=== PATIENT | male | born 1975 | race Caucasian/White ===

== ENCOUNTER → 2016-02-26 | Outpatient (REF) | payer BC | END | disposition home or self-care (01) | LOC: M LAB REF 12:26 | PROVIDERS: ATTEND Internal Medicine | DX: R79.89 Other specified abnormal findings of blood chemistry (principal) ==

== ENCOUNTER → 2016-08-29 | Outpatient (REF) | payer BC ==
[~2016-08-29] MED LIST: LIPI10TA PO; OXYC1TAB23 PO; PRAV20TA2 PO
== END ==
LOC: M LAB REF 18:02
PROVIDERS: ATTEND Otolaryngology
DX: D23.39 Other benign neoplasm of skin of other parts of face (principal)

== ENCOUNTER → 2016-09-07 | Outpatient (CLI) | payer BC ==
[~2016-09-07] MED LIST changes: +ISOVUE-370 76% 100ML VIAL (Q9967) As Ordered ONE
--- NOTE | 2016-09-08 08:45 | REP ---
CT NECK WITH CONTRAST: HISTORY: Swelling. CONTRAST: Isovue 370, 75 mL. A BB was placed on the soft tissue overlying the left temporalis muscle. A 2.2 cm soft tissue mass is present in the subcutaneous tissue lateral to the body of the left mandible. The naso-, viviana-, and hypopharynx, larynx, and subglottic trachea are otherwise normal in appearance. The salivary and thyroid glands are normal in size and density. Small lymph nodes less than 1 cm in size are present in the internal jugular chains, posterior triangles, submandibular, submental and supraclavicular areas. The lung apices are clear. Mucosal thickening and a retention cyst are present in the left maxillary sinus. A 3 mm metallic density is present in the left globe. There is mild dilatation of the visualized third and lateral ventricles. IMPRESSION: 1. There is a 2.2 cm soft tissue mass in the subcutaneous tissue lateral to the body of the left mandible. This most likely represents a lymph node. 2. There is mild dilatation of the visualized third and lateral ventricles. This may represent encephalomalacia or hydrocephalus. Head CT may be helpful for further evaluation. Signed by Chidi Vasquez MD 09/08/2016 08:53 A
== END ==
LOC: M RAD 16:53
PROVIDERS: ATTEND Otolaryngology
DX: R22.0 Localized swelling, mass and lump, head (principal); G93.89 Other specified disorders of brain
CPT/HCPCS: 70491; Q9967

== ENCOUNTER → 2016-11-08 | Outpatient (CLI) | payer BC ==
[~2016-11-08] MED LIST changes: -ISOVUE-370 76% 100ML VIAL (Q9967) As Ordered ONE
--- NOTE | 2016-11-08 22:29 | ECGEPIP ---
Stationary ECG Study [facility] Test Date: 2016-11-08 Pat Name: VIVIAN ALLRED Department: Room: - Gender: M [employer] Psychiatrist: BRADLEY : 1975 Requested By: DANYELL Chavez Order Number: [id number] Reading MD: aMrt Norton Measurements Intervals [place] Rate: 67 P: 56 GA: 200 QRS: 81 QRSD: 106 T: 19 QT: 390 QTc: 414 Interpretive Statements Normal sinus rhythm Consider prior IWMI Nonspecific T wave abnormality Comparison tracing not on file Electronically Signed On 11-08-2016 22:29:00 EDT by Mart Norton
== END ==
LOC: M EKG 16:01
PROVIDERS: ATTEND Anesthesiology
DX: Z01.810 Encounter for preprocedural cardiovascular examination (principal); I10 Essential (primary) hypertension; R94.31 Abnormal electrocardiogram [ECG] [EKG]

== ENCOUNTER 2016-11-10 09:59 | Day surgery (SDC) | payer BC ==
[~2016-11-10] VITALS: Ht 167.6 cm; Wt 112.4 kg
[~2016-11-10 09:59] MED LIST changes: -OXYC1TAB23 PO
[2016-11-10] MEDS ORDERED: dexameTHASONE 4 MG/ML 1ML VIAL (J1100) IV ONE (10:15)
[2016-11-10] MEDS ORDERED: LIDOCAINE 1% SDV 5 ML VIAL SC ONE (10:15)
[2016-11-10] MEDS ORDERED: LR 1,000 ML IV SCH ×2 (10:15→16:30)
[2016-11-10] MEDS ORDERED: LIDOCAINE 2% INJ 100 MG/5 ML SDV (FOR ANES.) As Ordered ONE (11:17)
[2016-11-10] MEDS ORDERED: PROPOFOL 200 MG/20 ML VIAL As Ordered ONE ×3 (11:17→13:16)
[2016-11-10] MEDS ORDERED: ONDANSETRON 4MG/2ML VIAL (J2405) As Ordered ONE ×2 (11:18→11:19)
[2016-11-10] MEDS ORDERED: ROCURONIUM BROMIDE 50 MG/5 ML VIAL/SYRINGE As Ordered ONE (11:18)
[2016-11-10] MEDS ORDERED: MIDAZOLAM INJ 2 MG/2 ML VIAL (J2250) As Ordered ONE (11:18)
[2016-11-10] MEDS ORDERED: fentaNYL 100 MCG/2 ML INJECTION (J3010) As Ordered ONE ×2 (11:19→14:42)
[2016-11-10] MEDS ORDERED: SUCCINYLCHOLINE 100 MG/5 ML SYRINGE (J0330) As Ordered ONE (11:19)
[2016-11-10] MEDS ORDERED: BACITRACIN OINT 30GM As Ordered ONE (11:54)
[2016-11-10] MEDS ORDERED: LIDOCAINE W/EPINEPHRINE 1% 20ML VIAL As Ordered ONE (11:55)
[2016-11-10] MEDS ORDERED: ceFAZolin 2 GM/D5W 50 ML IV BAG (J0690) As Ordered ONE (12:52)
[2016-11-10] MEDS ORDERED: MORPHINE 1MG/ML IN 0.9% NACL 100ML IV BAG As Ordered ONE (16:05)
[2016-11-10] MEDS ORDERED: MORPHINE 4 MG/ML 1ML SYRINGE IV PRN (16:15)
[2016-11-10] MEDS ORDERED: ACETAMINOPHEN TAB 650MG DOSE (2X325MG) PO PRN (16:15)
[2016-11-10] MEDS ORDERED: PERCOCET 5MG/325MG TAB PO PRN (16:30)
[2016-11-10] MEDS: ONDANSETRON 4MG/2ML VIAL (J2405) IV PRN ×2 (16:55→23:49)
[2016-11-10] MEDS: fentaNYL 100 MCG/2 ML INJECTION (J3010) IV PRN ×4 (16:55→17:15)
[2016-11-10 18:30] VITALS: BP 148/95
[2016-11-10 19:00] VITALS: BP 143/95
[2016-11-10 20:00] VITALS: BP 160/89
[2016-11-10] MEDS ORDERED: dexameTHASONE 20 MG/5 ML VIAL (J1100) IV SCH (20:00)
[2016-11-10] MEDS ORDERED: ONDANSETRON 4MG/2ML VIAL (J2405) IV ONE (20:00)
[2016-11-10] MEDS: dexameTHASONE 4 MG/ML 1ML VIAL (J1100) IV SCH (20:19)
[2016-11-10 22:00] VITALS: BP 141/78
[2016-11-10 23:00] VITALS: BP 138/72
[2016-11-11 02:00] VITALS: BP 133/80
[2016-11-11] MEDS: dexameTHASONE 4 MG/ML 1ML VIAL (J1100) IV SCH ×2 (05:07→13:01)
[2016-11-11 06:00] VITALS: BP 135/85
[2016-11-11] MEDS: ONDANSETRON 4MG/2ML VIAL (J2405) IV PRN (08:41)
[2016-11-11] MEDS ORDERED: PROMETHAZINE INJ 25 MG/ML VIAL (J2550) IV PRN (10:15)
[2016-11-11 14:00] VITALS: BP 143/93
[2016-11-11] MEDS ORDERED: OXYC1TAB23 PO (15:59)
--- NOTE | 2016-11-22 23:24 | RO ---
DATE OF PROCEDURE: 11/10/2016 PREPROCEDURE DIAGNOSIS: Left parotid mass. POSTPROCEDURE DIAGNOSIS: Left parotid mass. PROCEDURE: Left total parotidectomy with intraoperative facial nerve monitoring. SURGEON: Dr. Kristopher Santillan ASSISTANTS: Rigoberto De Los Santos MD and MOHINDER Gerard ANESTHESIA: General without use of the paralytic agent. CLINICAL PREAMBLE: This 40-year-old man was referred to my office due to a mass over the left cheek near the left middle labia area. A mobile 2 cm mass was palpated. Fine needle aspiration (FNA) showed evidence of no malignant mass lesion. CT scan revealed evidence of a 2-1/2 to 3 cm mass lesion of the left parotid area anteromedially. Management options including surgery listed above have been discussed with the patient. He understood and consented to the procedure. DESCRIPTION OF PROCEDURE: The patient was identified in preoperative holding and had the left face marked. He was brought to the operating room in stable condition. In supine position on the operating table, the patient received general anesthesia, followed by orotracheal intubation without incident. The patient received no further paralytic agent from this point onward. Test electrodes were then placed to the left lateral [place] region, as well as the left oral commissure. Ground electrodes were attached to the sternal area. Good electrode signals were obtained from the NIM-3 nerve monitor. The patient was then prepped and draped in the usual fashion for the procedure to allow complete exposure of the entire left face. The modified Marshall incision was outlined over the left parotid area. The skin was infiltrated with 1% lidocaine with 1:100, 000 epinephrine. Skin flap was then developed anteromedially to the level of the parotid mass. The cartilaginous portion of the left external auditory canal was dissected. The anterior border of the left sternocleidomastoid muscle was dissected. The posterior belly of digastric muscle was identified and dissected as well. The pes anserinus of the left facial nerve was eventually identified approximately 1 cm anterior and deep to the tragal pointer. The upper branch of the facial nerve was then traced to allow the dissection anteriorly, all the way to the anterior border of the left parotid mass lesion. It was noted that the parotid mass lesion was deep to the facial nerve branches. Careful dissection was carried out, the facial nerve branches of the ophthalmic and the buccal branches. The fat pad of the medial labial fold area was carefully preserved. The mass lesion was found to be well encapsulated. Complete en bloc resection was achieved of the left parotid mass. There was no spillage of the mass lesion. The lesion measured 3 cm in size. Complete hemostasis was achieved using bipolar electrocautery. A #7 flat JEAN PAUL drain was inserted into the left parotid head region. The skin incision was closed in two layers. The JEAN PAUL drain was secured to the stab incision made in the left postauricular area. The compressive dressing was then applied over the left parotid region. At the end of the procedure, sponge and instrument counts were correct. No complications were encountered. Estimated blood loss was approximately 20 mL. The branches of the facial nerve were found to be stimulatable at the end of the case. General anesthesia was reversed, and the patient was extubated and brought to the recovery room in stable condition. NEVA
== END 2016-11-11 16:45 | disposition home or self-care (01) ==
LOC: M SDC 09:59 → M MS5PR 18:00 → M SDC 11-11 16:45
PROVIDERS: ATTEND Otolaryngology
DX: D11.0 Benign neoplasm of parotid gland (principal); I10 Essential (primary) hypertension; E78.00 Pure hypercholesterolemia, unspecified; G47.33 Obstructive sleep apnea (adult) (pediatric); R06.83 Snoring; E66.01 Morbid (severe) obesity due to excess calories; Z68.41 Body mass index [BMI] 40.0-44.9, adult; R73.03 Prediabetes; Z79.899 Other long term (current) drug therapy
CPT/HCPCS: 42420; 88305; 96374; 96375; 96376; J0330; J0690; J1100; J2250; J2405; J3010

== ENCOUNTER → 2018-05-02 | Outpatient (REF) | payer BC ==
[~2018-05-02] MED LIST changes: +OXYC1TAB23 PO
[2018-05-03 08:52] LABS: LDL DIRECT 173 mg/dL (0-99)
== END ==
LOC: M LAB REF 13:10
PROVIDERS: ATTEND Internal Medicine
DX: E78.5 Hyperlipidemia, unspecified (principal)

== ENCOUNTER 2022-05-17 10:19 | Inpatient (IN) | payer BC ==
[2022-05-17] VITALS (8 sets, daily range): BP systolic 135–147; BP diastolic 69–93; O2SAT 92–95
[~2022-05-17] VITALS: Ht 170.2 cm; Wt 123.5 kg
[2022-05-17] MEDS ORDERED: ATOR40TA75 PO (10:30)
[2022-05-17] MEDS ORDERED: LISI10TA22 PO (10:30)
[2022-05-17 11:19] LABS: BASO % 0.5 % (0.0-1.0); EOS # 0.1 10^3/uL (0.0-0.5); HEMATOCRIT 46.4 % (42.0-52.0); LYMPH # 1.9 10^3/uL (1.5-5.0); LYMPH % 25.4 % (24.0-44.0); MEAN CORPUSCULAR HEMOGLOBIN 30.2 pg (27.0-33.0); MEAN CORPUSCULAR HGB CONC 34.5 g/dl (32.0-36.5); MEAN CORPUSCULAR VOLUME 87.7 fl (80.0-96.0); MONO # 0.6 10^3/uL (0.0-0.8); MONO % 8.7 % (2.0-8.0); NEUTROPHILS # 4.7 10^3/uL (1.5-8.5); NEUTROPHILS % 63.9 % (36.0-66.0); PLATELET COUNT, AUTOMATED 258 10^3/uL (150-450); RED BLOOD COUNT 5.29 10^6/uL (4.30-6.10); WHITE BLOOD COUNT 7.4 10^3/uL (4.0-10.0)
[2022-05-17 11:58] LABS: RSV AMPLIFICATION NEGATIVE (NEGATIVE)
[2022-05-17 12:51] LABS: BLOOD UREA NITROGEN 14 MG/DL (9-23); CALCIUM LEVEL 9.4 MG/DL (8.5-10.1); CARBON DIOXIDE LEVEL 21 MMOL/L (20-31); CHLORIDE LEVEL 102 MMOL/L (98-107); CK-MB VALUE MASS 1.3 NG/ML (<3.6); CPK CREATINE PHOSPHOKINASE 184 U/L (46-171); CREATININE FOR GFR 1.01 MG/DL (0.70-1.30); GLOMERULAR FILTRATION RATE > 60.0 (>60); GLUCOSE, FASTING 100 MG/DL (60-100); MAGNESIUM LEVEL 2.1 MG/DL (1.8-2.4); POTASSIUM SERUM 4.5 MMOL/L (3.5-5.1); SODIUM LEVEL 137 MMOL/L (136-145)
[2022-05-17] MEDS ORDERED: HOME MED LIST COMPLETE! XX SCH (14:10)
[2022-05-17 14:16] LABS: THYROID STIMULATING HORMONE 0.646 uIU/ML (0.55-4.78)
[2022-05-17] MEDS ORDERED: ISOVUE-370 76% 100ML VIAL As Ordered ONE (14:44)
[2022-05-17] MEDS: ASPIRIN 81MG ENTERIC TABLET PO SCH (15:44)
[2022-05-17] MEDS: HEPARIN SOD (PORCINE) 5000UNITS/ML 1ML VIAL/SYRINGE SC SCH ×2 (15:44→21:23)
[2022-05-17 17:25] LABS: HEMOGLOBIN A1c 5.8 % (4.0-6.0)
[2022-05-17 17:39] LABS: CHOLESTEROL RISK RATIO 4.66 (<5); HDL CHOLESTEROL 39.2 MG/DL (>40); LDL CHOLESTEROL 86.6 MG/DL (<100); NON-HDL-C 143.8 MG/DL
[2022-05-17] MEDS ORDERED: ATORVASTATIN 20 MG TAB PO SCH (21:00)
[2022-05-17] MEDS ORDERED: ACETAMINOPHEN TAB 650MG DOSE (2X325MG) PO ONE (21:00)
[2022-05-18] VITALS (16 sets, daily range): BP systolic 133–148; BP diastolic 71–93; O2SAT 90–95
[2022-05-18] MEDS ORDERED: ACETAMINOPHEN TAB 650MG DOSE (2X325MG) PO ONE (03:55)
[2022-05-18] MEDS ORDERED: ONDANSETRON 4MG TAB PO ONE (04:00)
[2022-05-18 05:48] LABS: BASO % 0.5 % (0.0-1.0); EOS # 0.1 10^3/uL (0.0-0.5); EOS % 1.2 % (0.0-3.0); HEMATOCRIT 44.4 % (42.0-52.0); HEMOGLOBIN 15.4 g/dl (13.5-17.5); LYMPH # 1.6 10^3/uL (1.5-5.0); LYMPH % 21.1 % (24.0-44.0); MEAN CORPUSCULAR HEMOGLOBIN 30.5 pg (27.0-33.0); MEAN CORPUSCULAR HGB CONC 34.7 g/dl (32.0-36.5); MEAN CORPUSCULAR VOLUME 87.9 fl (80.0-96.0); MONO # 0.5 10^3/uL (0.0-0.8); MONO % 7.2 % (2.0-8.0); NEUTROPHILS # 5.1 10^3/uL (1.5-8.5); NEUTROPHILS % 69.5 % (36.0-66.0); PLATELET COUNT, AUTOMATED 238 10^3/uL (150-450); RED BLOOD COUNT 5.05 10^6/uL (4.30-6.10); WHITE BLOOD COUNT 7.4 10^3/uL (4.0-10.0)
[2022-05-18] MEDS: HEPARIN SOD (PORCINE) 5000UNITS/ML 1ML VIAL/SYRINGE SC SCH ×2 (06:00→13:07)
[2022-05-18 06:14] LABS: BLOOD UREA NITROGEN 13 MG/DL (9-23); CALCIUM LEVEL 9.2 MG/DL (8.5-10.1); CARBON DIOXIDE LEVEL 27 MMOL/L (20-31); CHLORIDE LEVEL 100 MMOL/L (98-107); CREATININE FOR GFR 1.06 MG/DL (0.70-1.30); GLOMERULAR FILTRATION RATE > 60.0 (>60); GLUCOSE, FASTING 127 MG/DL (60-100); MAGNESIUM LEVEL 2.1 MG/DL (1.8-2.4); POTASSIUM SERUM 4.5 MMOL/L (3.5-5.1); SODIUM LEVEL 134 MMOL/L (136-145)
[2022-05-18] MEDS: ASPIRIN 81MG ENTERIC TABLET PO SCH (08:13)
[2022-05-18] MEDS ORDERED: ACETAMINOPHEN TAB 650MG DOSE (2X325MG) PO PRN (09:40)
[2022-05-18] MEDS ORDERED: ATOR1TAB21 PO (11:33)
[2022-05-18] MEDS ORDERED: ASPI81TAEC PO (11:33)
== END 2022-05-18 16:51 | disposition home or self-care (01) | DRG 204 ==
LOC: M ED 10:19 → M ED INP 14:06 → M PCU 19:27
PROVIDERS: ADMIT Internal Medicine; ATTEND Internal Medicine
PROC: B246ZZZ Ultrasonography of Right and Left Heart (ICD-10-PCS; principal; 2022-05-18)
DX: I95.1 Orthostatic hypotension (principal); G91.1 Obstructive hydrocephalus; E66.01 Morbid (severe) obesity due to excess calories; Z68.41 Body mass index [BMI] 40.0-44.9, adult; I10 Essential (primary) hypertension; E78.5 Hyperlipidemia, unspecified; G47.33 Obstructive sleep apnea (adult) (pediatric); Z79.899 Other long term (current) drug therapy

== ENCOUNTER → 2023-01-10 | Outpatient (REF) | payer BC ==
[~2023-01-10] MED LIST changes: +ASPI81TAEC PO; +ATOR1TAB21 PO; +ATOR40TA75 PO; +LISI10TA22 PO
[2023-01-10 18:26] LABS: BASO % 0.5 % (0.0-1.0); EOS % 0.5 % (0.0-3.0); HEMATOCRIT 45.3 % (42.0-52.0); HEMOGLOBIN 15.4 g/dl (13.5-17.5); LYMPH # 1.9 10^3/uL (1.5-5.0); LYMPH % 23.4 % (24.0-44.0); MEAN CORPUSCULAR HEMOGLOBIN 30.3 pg (27.0-33.0); MEAN CORPUSCULAR VOLUME 89.2 fl (80.0-96.0); MONO # 0.6 10^3/uL (0.0-0.8); MONO % 7.5 % (2.0-8.0); NEUTROPHILS # 5.6 10^3/uL (1.5-8.5); NEUTROPHILS % 67.6 % (36.0-66.0); PLATELET COUNT, AUTOMATED 270 10^3/uL (150-450); RED BLOOD COUNT 5.08 10^6/uL (4.30-6.10); WHITE BLOOD COUNT 8.3 10^3/uL (4.0-10.0)
[2023-01-10 18:39] LABS: ALBUMIN 3.9 G/DL (3.2-5.2); ALKALINE PHOSPHATASE 131 U/L (46-116); ALT/SGPT 46 U/L (7.0-40); AST/SGOT 17 U/L (<34); BILIRUBIN,TOTAL 0.6 MG/DL (0.3-1.2); BLOOD UREA NITROGEN 18 MG/DL (9-23); CALCIUM LEVEL 9.4 MG/DL (8.5-10.1); CARBON DIOXIDE LEVEL 25 MMOL/L (20-31); CHLORIDE LEVEL 104 MMOL/L (98-107); CHOLESTEROL LEVEL 178 MG/DL (<200); CHOLESTEROL RISK RATIO 4.18 (<5); CREATININE FOR GFR 0.92 MG/DL (0.70-1.30); GLOMERULAR FILTRATION RATE > 60.0 (>60); GLUCOSE, FASTING 81 MG/DL (60-100); HDL CHOLESTEROL 42.5 MG/DL (>40); LDL CHOLESTEROL 68.7 MG/DL (<100); NON-HDL-C 135.5 MG/DL; POTASSIUM SERUM 4.1 MMOL/L (3.5-5.1); SODIUM LEVEL 138 MMOL/L (136-145); TOTAL PROTEIN 6.8 G/DL (5.7-8.2); TRIGLYCERIDES LEVEL 334 MG/DL (<150)
[2023-01-10 19:26] LABS: HEMOGLOBIN A1c 5.4 % (4.0-6.0)
== END ==
LOC: M LAB REF 16:14
PROVIDERS: ATTEND Internal Medicine
DX: I10 Essential (primary) hypertension (principal); R73.03 Prediabetes; K76.0 Fatty (change of) liver, not elsewhere classified

== ENCOUNTER → 2024-10-23 | Outpatient (REF) | payer BC ==
[~2024-10-23] MED LIST changes: -PRAV20TA2 PO; +PRAV20TA78 PO
[2024-10-23 17:32] LABS: APPEARANCE, URINE CLEAR (CLEAR); BACTERIA, URINE AUTO NEGATIVE (NEGATIVE); BILIRUBIN, URINE AUTO NEGATIVE (NEGATIVE); BLOOD, URINE BLOOD NEGATIVE (NEGATIVE); GLUCOSE, URINE (UA) AUTO NEGATIVE (NEGATIVE); KETONE, URINE AUTO NEGATIVE (NEGATIVE); LEUKOCYTE ESTERASE, URINE AUTO NEGATIVE (NEGATIVE); MUCUS, URINE SMALL (NEGATIVE); NITRITE, URINE AUTO NEGATIVE (NEGATIVE); PROTEIN, URINE AUTO NEGATIVE (NEGATIVE); RBC, URINE AUTO 0 /HPF (0-3); SPECIFIC GRAVITY URINE AUTO 1.013 (1.002-1.035); SQUAMOUS EPITHELIAL CELL UR AU 0 /HPF (0-6); UROBILINOGEN, URINE AUTO 0.2 mg/dL (0.0-2.0); WBC, URINE AUTO 0 /HPF (0-3)
[2024-10-23 17:34] LABS: BASO # 0.1 10^3/uL (0.0-0.2); BASO % 0.6 % (0.0-1.0); EOS # 0.1 10^3/uL (0.0-0.5); EOS % 1.0 % (0.0-3.0); LYMPH # 2.3 10^3/uL (1.5-5.0); LYMPH % 28.1 % (24.0-44.0); MONO # 0.6 10^3/uL (0.0-0.8); MONO % 7.4 % (2.0-8.0); NEUTROPHILS # 5.0 10^3/uL (1.5-8.5); NEUTROPHILS % 62.4 % (36.0-66.0); PLATELET COUNT, AUTOMATED 270 10^3/uL (150-450)
[2024-10-23 18:01] LABS: ALT/SGPT 59.0 U/L (7.0-40); AST/SGOT 26.0 U/L (<34); CALCIUM LEVEL 9.7 MG/DL (8.5-10.1); CARBON DIOXIDE LEVEL 25.0 MMOL/L (20-31); CHLORIDE LEVEL 104.0 MMOL/L (98-107); CHOLESTEROL LEVEL 168.0 MG/DL (<200); CHOLESTEROL RISK RATIO 3.83 (<5); CREATININE FOR GFR 1.12 MG/DL (0.70-1.30); CREATININE, URINE 125.4 MG/DL; GLOMERULAR FILTRATION RATE 81.5 (>60); LDL CHOLESTEROL 83.6 MG/DL (<100); MAGNESIUM LEVEL 2.1 MG/DL (1.8-2.4); MALB URINE SIEMENS < 3.0 MG/L; NON-HDL-C 124.2 MG/DL; POTASSIUM SERUM 4.2 MMOL/L (3.5-5.1); SODIUM LEVEL 143.0 MMOL/L (136-145); TRIGLYCERIDES LEVEL 203.0 MG/DL (<150)
[2024-10-23 18:45] LABS: ESTIMATED AVERAGE GLUCOSE 126.0 MG/DL (60-110)
== END ==
LOC: M LAB REF 16:46
PROVIDERS: ATTEND Internal Medicine
DX: K76.0 Fatty (change of) liver, not elsewhere classified (principal); I10 Essential (primary) hypertension; E78.00 Pure hypercholesterolemia, unspecified; R73.03 Prediabetes